=== PATIENT | female | born 1945 | race Caucasian/White ===

== ENCOUNTER → 2021-06-20 | Outpatient (CLI) | payer MEDICARE, MEDICAID ==
[~2021-06-20] MED LIST: ALLO300T2; ATEN100T PO; CALC-356; CALC1CAP31; CETI-24; DOCU100C16; EXEM25TA PO; FURO20TA2; LETR2.5T2 PO; LEVO75TA4; NYST10CR; NYST1POW9; POTA1TAB23; REFR1DRO8; SIMV20TA22; TACR0.1O; TELM1TAB37; VITA400C50 PO
== END ==
LOC: M ONCR 10:52
PROVIDERS: ATTEND General Practice
DX: C50.911 Malignant neoplasm of unspecified site of right female breast (principal); Z79.899 Other long term (current) drug therapy; Z88.2 Allergy status to sulfonamides; Z88.8 Allergy status to other drugs, medicaments and biological substances; Z91.040 Latex allergy status; Z91.048 Other nonmedicinal substance allergy status

== ENCOUNTER 2021-06-27 11:10 | Outpatient (RCR) | payer MEDICARE, MEDICAID ==
[~2021-06-27 11:10] MED LIST changes: -ALLO300T2; +ALLO300T2 PO; -CALC-356; +CALC-356 PO; -CALC1CAP31; +CALC1CAP31 PO; -CETI-24; +CETI-24 PO; -DOCU100C16; +DOCU100C16 PO; -FURO20TA2; +FURO20TA2 PO; -LEVO75TA4; +LEVO75TA4 PO; -NYST10CR; +NYST10CR TOP; -NYST1POW9; +NYST1POW9 TOP; -POTA1TAB23; +POTA1TAB23 PO; -REFR1DRO8; +REFR1DRO8 OU; -SIMV20TA22; +SIMV20TA22 PO; -TACR0.1O; +TACR0.1O OU; -TELM1TAB37; +TELM1TAB37 PO
== END 2021-07-03 ==
LOC: M ONCR 11:10
PROVIDERS: ATTEND General Practice
DX: C50.111 Malignant neoplasm of central portion of right female breast (principal)

== ENCOUNTER 2021-08-01 11:05 | Outpatient (RCR) | payer MEDICARE, MEDICAID | END 2021-08-02 | LOC: M ONCR 11:05 | PROVIDERS: ATTEND General Practice | DX: C50.111 Malignant neoplasm of central portion of right female breast (principal) ==

== ENCOUNTER → 2022-01-27 | Outpatient (CLI) | payer MEDICARE, MEDICAID ==
[~2022-01-27] MED LIST changes: +NYST-13 TOP; -NYST10CR TOP
== END ==
LOC: M ONCR 09:51
PROVIDERS: ATTEND General Practice
DX: Z08 Encounter for follow-up examination after completed treatment for malignant neoplasm (principal); Z85.3 Personal history of malignant neoplasm of breast; Z79.811 Long term (current) use of aromatase inhibitors; Z79.899 Other long term (current) drug therapy; Z88.2 Allergy status to sulfonamides; Z88.6 Allergy status to analgesic agent; Z88.8 Allergy status to other drugs, medicaments and biological substances; Z91.041 Radiographic dye allergy status; Z91.048 Other nonmedicinal substance allergy status

== ENCOUNTER → 2023-02-03 | Outpatient (CLI) | payer MEDICARE, MEDICAID ==
[~2023-02-03] MED LIST changes: +HYDR-3910
== END ==
LOC: M ONCR 14:16
PROVIDERS: ATTEND General Practice
DX: Z08 Encounter for follow-up examination after completed treatment for malignant neoplasm (principal); Z85.3 Personal history of malignant neoplasm of breast; Z71.2 Person consulting for explanation of examination or test findings; Z79.811 Long term (current) use of aromatase inhibitors; Z79.899 Other long term (current) drug therapy; Z88.1 Allergy status to other antibiotic agents; Z88.2 Allergy status to sulfonamides; Z88.8 Allergy status to other drugs, medicaments and biological substances; Z91.048 Other nonmedicinal substance allergy status; Z91.040 Latex allergy status; Z92.3 Personal history of irradiation; Z98.890 Other specified postprocedural states

== ENCOUNTER → 2024-02-08 | Outpatient (CLI) | payer MEDICARE, MEDICAID ==
[~2024-02-08] MED LIST changes: -HYDR-3910; +HYDR25TA87; +NYST1POW3 TOP; -NYST1POW9 TOP
== END ==
LOC: M ONCR 13:24
PROVIDERS: ATTEND General Practice
DX: Z08 Encounter for follow-up examination after completed treatment for malignant neoplasm (principal); Z85.3 Personal history of malignant neoplasm of breast; Z98.890 Other specified postprocedural states; Z92.3 Personal history of irradiation; Z79.811 Long term (current) use of aromatase inhibitors; Z88.1 Allergy status to other antibiotic agents; Z88.2 Allergy status to sulfonamides; Z91.048 Other nonmedicinal substance allergy status; Z91.040 Latex allergy status; Z88.8 Allergy status to other drugs, medicaments and biological substances; Z79.899 Other long term (current) drug therapy